=== PATIENT | female | born 1965 | race Caucasian/White ===

== ENCOUNTER 2016-06-27 11:51 | Emergency (ER) | payer MEDICAID ==
[~2016-06-27] VITALS: Ht 162.6 cm; Wt 89.0 kg
[2016-06-27 11:58] VITALS: Ht 162.6 cm; Wt 89.0 kg
[2016-06-27] MEDS ORDERED: NAPROXEN 500 MG TAB PO ONE (13:00)
--- NOTE | 2016-06-27 13:03 | RADRPT ---
PROCEDURE: XR Left Hand CLINICAL INDICATION: Pain status post fall TECHNIQUE: AP, oblique, and lateral radiographs were submitted. COMPARISON: None FINDINGS: Osseous structures: The osseous elements appear rarefied but intact with no fracture or identified. Joint spaces: are well maintained, with no significant spurring, erosion or joint effusion evident. Soft tissues: A 3 mm calcific density is seen within the soft tissues anteromedial to the mid first metacarpal shaft. IMPRESSION: 1. No fracture dislocation is evident. 2. Small calcific density projects to the soft tissues anteromedial to the mid first metacarpal sha ft. Physician Ziyad Date Time Electronically viewed and signed by Physician Ziyad on 06/27/2016 13:03 /
--- NOTE | 2016-06-27 13:04 | RADRPT ---
PROCEDURE: XR Left Wrist with Navicular View CLINICAL INDICATION: Pain TECHNIQUE: AP, lateral, and oblique views as well as a carpal navicular view were submitted. COMPARISON: None FINDINGS: Osseous structures: appear well mineralized and intact with no fracture or destructive process iden tified. Joint spaces: are well maintained with no significant erosions or spurring identified. Soft tissues: A small alli-like calcific density projects to the soft tissues ventral medial to the m id left first metacarpal shaft. IMPRESSION: 1. Alli-like calcific density projects to the soft tissues anteromedial to the mid first metacarpal shaft. 2. Otherwise, unremarkable left wrist with navicular view. Physician Ziyad Date Time Electronically viewed and signed by Physician Ziyad on 06/27/2016 13:04 /
[2016-06-27] MEDS ORDERED: NAPR-260 PO (13:15)
--- NOTE | 2016-06-27 13:47 | ERD ---
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 Patient states that she tripped over the curb and fell on her wrist. Denies hitting her head, passing out or losing conscious. Denies pain in her elbow or shoulder. She has no other complaints. Has not used any medication for symptoms. ROS All systems reviewed and are negative except as per history of present illness. Medications Home Meds Active Scripts Naproxen* (Naprosyn*) 500 Mg Tablet, 500 MG PO BID Y for PAIN AND/OR INFLAMMATION, #30 TAB Prov:JAYDA SALOMON PA-C 06/27/16 PMhx/Soc Medical and Surgical Hx: Unable to obtain History of Surgery: No Anesthesia Reaction: No Hx Neurological Disorder: No Hx Respiratory Disorders: No Hx Cardiac Disorders: No Hx Psychiatric Problems: No Hx Miscellaneous Medical Probl: No Hx Alcohol Use: No Hx Substance Use: No Hx Tobacco Use: No Smoking Status: Never smoker Physical Exam Vitals Vital Signs Date Time Temp Pulse Resp B/P Pulse Ox O2 Delivery O2 Flow Rate FiO2 06/27/16 11:58 98.0 93 18 167/80 99 Physical Exam GENERAL: Well-developed, well-nourished female. Appears in no acute distress. HEAD: Normocephalic, atraumatic. EYES: Pupils are equally reactive bilaterally. EOMs grossly intact. No conjunctival erythema. ENT: Moist mucous membranes. No uvula deviation. No kissing tonsils. No exudates. NECK: Supple. No lymphadenopathy or thyromegaly. No meningismus. negative kernig. negative brudinski. LUNG: Clear to auscultation bilaterally. No rhonchi, wheezing, rales or coarse breath sounds. HEART: Regular rate and rhythm. No murmurs, rubs or gallops. Extremities: Equal pulses bilaterally. No peripheral clubbing, cyanosis or edema. No unilateral leg swelling. Tenderness to the left wrist. No step-offs or deformities noted. No open wounds or lacerations. Radius, ulnar and median nerve intact. No snuffbox tenderness. NEUROLOGIC: Alert and oriented. Moving all four extremities. 5/5 strength in all extremities. Normal speech. Steady gait. SKIN: Normal color. Warm and dry. No rashes or lesions. Capillary refill < 2 seconds Results 24 hrs Current Medications Medications (Trade) Dose Ordered Sig/[place] Route PRN Reason Start Time Stop Time Status Last Admin Dose Admin Naproxen (Naprosyn) 500 mg ONCE ONCE PO 06/27/16 13:00 06/27/16 13:01 DC 06/27/16 13:01 Procedures/MDM ER COURSE: I kept the patient and/or family informed of laboratory and diagnostic imaging results throughout the emergency room course. imaging studies [place] [id number] Radiology Main Line: [phone] DIAGNOSTIC IMAGING REPORT Patient: RAZA MEEHAN : 1965 Age: 50 Sex: F MR #: [id number] DOS: 06/27/16 1232 Ordering MD: JAYDA SALOMON PA-C Location: [facility] Room/Bed: PROCEDURE: XR Left Hand CLINICAL INDICATION: Pain status post fall TECHNIQUE: AP, oblique, and lateral radiographs were submitted. COMPARISON: None FINDINGS: Osseous structures: The osseous elements appear rarefied but intact with no fracture or identified. Joint spaces: are well maintained, with no significant spurring, erosion or joint effusion evident. Soft tissues: A 3 mm calcific density is seen within the soft tissues anteromedial to the mid first metacarpal shaft. IMPRESSION: 1. No fracture dislocation is evident. 2. Small calcific density projects to the soft tissues anteromedial to the mid first metacarpal shaft. Physician Ziyad Date Time Electronically viewed and signed by Physician Ziyad on 06/27/2016 13:03 RH/ CC: JAYDA SALOMON PA-C [place] [id number] Radiology Main Line: [phone] DIAGNOSTIC IMAGING REPORT Patient: RAZA MEEHAN : 1965 Age: 50 Sex: F MR #: [id number] DOS: 06/27/16 1232 Ordering MD: JAYDA SALOMON PA-C [facility] Room/Bed: PROCEDURE: XR Left Wrist with Navicular View CLINICAL INDICATION: Pain TECHNIQUE: AP, lateral, and oblique views as well as a carpal navicular view were submitted. COMPARISON: None FINDINGS: Osseous structures: appear well mineralized and intact with no fracture or destructive process identified. Joint spaces: are well maintained with no significant erosions or spurring identified. Soft tissues: A small alli-like calcific density projects to the soft tissues ventral medial to the mid left first metacarpal shaft. IMPRESSION: 1. Alli-like calcific density projects to the soft tissues anteromedial to the mid first metacarpal shaft. 2. Otherwise, unremarkable left wrist with navicular view. Physician Ziyad Date Time Electronically viewed and signed by Physician Ziyad on 06/27/2016 13:04 RH/ CC: JAYDA SALOMON PA-C MEDICAL DECISION MAKING: This is a 50-year-old female who presents with left wrist pain 1 day. Vital signs were reviewed. Patient is afebrile. Patient is not hypoxic. Patient is not toxic or ill-appearing. Patient likely has a wrist sprain. X-rays of by radiologist is unremarkable for fracture or dislocation. Low suspicion for dislocation, fracture, septic joint, compartment syndrome, osteomyelitis, cellulitis, avascular necrosis, neurological injury, vascular injury, tendon laceration. Patient does not have snuffbox tenderness. Patient was given a Velcro wrist splint. Patient was neurovascularly intact post placement DISCHARGE: At this time, patient is stable for discharge and outpatient management with no new complaints during the ER course. Patient was sent home with Velcro splint, Naprosyn and a copy of imaging report. Patient will be discharged home with instructions to recheck for new or worsening symptoms such as fever, nausea, weakness, LOC and to follow up with primary care in the next 1-2 days. Patient was advised to return to the ER for any new or worsening symptoms. Plan was discussed and patient and/or family understands and agrees. Home instructions were given. Departure Diagnosis: Primary Impression: Wrist sprain Encounter type: initial encounter Laterality: left Qualified Code: S63.502A - Wrist sprain, left, initial encounter Condition: Stable Patient Instructions: Wrist Sprain Additional Instructions: Call your primary care doctor TOMORROW for an appointment during the next 1-2 days.See the doctor sooner or return here if your condition worsens before your appointment time. JAYDA SALOMON PA-C June 27, 2016 13:47
== END 2016-06-27 14:14 | disposition home or self-care (01) ==
LOC: FTE 11:51
DX: S63.502A Unspecified sprain of left wrist, initial encounter (principal); W01.0XXA Fall on same level from slipping, tripping and stumbling without subsequent striking against object, initial encounter; Y92.9 Unspecified place or not applicable
CPT/HCPCS: 73110; 73130; Z7610